=== PATIENT | male | born 1955 | race Caucasian/White ===

== ENCOUNTER 2021-06-16 17:46 | Emergency (ER) | payer OTHER, SELFPAY ==
[2021-06-16 17:55] VITALS: BP 170/101; PULSE 61; RESP 15; TEMP 36.6; O2SAT 99
--- NOTE | 2021-06-16 18:00 | ED.WOUNDLAC ---
HPI - Wound/Laceration General Chief Complaint: Wound/Laceration Stated Complaint: right thumb lac Source: patient and RN notes reviewed Limitations: no limitations History of Present Illness HPI narrative: The left-handed patient, previously mostly healthy with Td status unknown, ,presents with right hand puncture wound. Prior to arrival patient was using a butter knife to separate frozen food, resulting in a puncture to the webspace of his right hand. He complains of mild pain and bleeding; no numbness/weakness, decreased sensation, other injury. All signs remarkable for elevated blood pressure; patient states he did not take his lisinopril last couple days over the weekend. Related Data Home Medications Medication Instructions Recorded Confirmed lisinopril 5 mg PO DAILY 06/16/21 06/16/21 Allergies Allergy/AdvReac Type Severity Reaction Status Date / Time No Known Allergies Allergy Verified 06/16/21 17:58 Review of Systems Review of Systems: General/Constitutional: No weight loss,fever Eyes: N0: Redness,discharge Ears/Nose/Throat: No: Epistaxis,ear discharge Respiratory: Denies: Hemoptysis Gastrointestinal: No Vomiting, Bleeding-rectal Skin: No Lumps, eruption Neurologic: No Focal Weakness,Sz Hematologic: Denies: Petechiae/Purpura Psychiatric: No: Suicida ideationl All Other Systems: Reviewed and Negative PMFSH Comments At time of signature, agree with nursing past medical, surgical, social and family history. There is no relevant family history pertinent to the presenting complaint Exam Narrative: General Appearance: Well appearing, , Conjunctiva clear Mouth/Throat: Normal appearing, Normal lips, Supple Respiratory: Airway patent, No respiratory distress Skin: Warm, Dry, Normal color, 1 cm wound of webspace MS-hand: Nl strength (mostly intact, almost unlimited flexion/extension), Tenderness (web space, with mild decreased ROM), no swelling, Other (no anterior drawer, no collateral laxity) Neurological: A&O x3, Normal affect Course Vital Signs Vital signs: Vital Signs Temperature 97.9 F 06/16/21 17:55 Pulse Rate 61 06/16/21 17:55 Respiratory Rate 15 06/16/21 17:55 Blood Pressure 170/101 H 06/16/21 17:55 Pulse Oximetry 99 06/16/21 17:55 Temperature 97.9 F 06/16/21 17:55 Pulse Rate 61 06/16/21 17:55 Respiratory Rate 15 06/16/21 17:55 Blood Pressure 152/94 H 06/16/21 18:30 Pulse Oximetry 99 06/16/21 17:55 Procedures Laceration Laceration 1: Date: 06/16/21 Site: hand Side (If applicable): right Depth: simple, single layer Local Anesthetic: other anesthetic (let) Amount of anesthesia used (mL): 1 Pre-repair: irrigated extensively ====== Skin Level ====== Skin layer closed with: nylon Size (cm): 5-0 Number of sutures: 2 Technique: simple, interrupted ====== Subcutaneous Layer ====== ====== Muscle Layer ====== ====== Tendon Layer ====== Discharge Plan Discharge Clinical Impression: Laceration of hand, right Qualifiers: Encounter type: initial encounter Foreign body presence: without foreign body Qualified Code(s): S61.411A - Laceration without foreign body of right hand, initial encounter Patient Disposition: Home, Self-Care Condition: Improved Instructions: Care For Your Stitches (ED) Additional Instructions: Remove 2 stitches in about a week Prescriptions: New mupirocin 2 % ointment 1 applic TOPICAL TID Qty: 30 RF: 0 cephalexin 500 mg capsule 1,000 mg PO Q12H 3 Days Qty: 12 RF: 0 No Action lisinopril 5 mg tablet 5 mg PO DAILY RF: 0 Follow-up/Referrals: Luis Wynne MD [Primary Care Provider] -
[2021-06-16] MEDS: TETANUS,DIPHTHERIA,AC PERTUSSIS ADULT (0.5 ML) BOOSTRIX IM (18:10)
[2021-06-16 18:30] VITALS: BP 152/94
== END 2021-06-16 18:30 | disposition home or self-care (01) ==
PROVIDERS: Emergency Provider Emergency Medicine; PCP Hospitalist
DX: S61.011A Laceration without foreign body of right thumb without damage to nail, initial encounter (principal); W26.0XXA Contact with knife, initial encounter; Z23 Encounter for immunization; I10 Essential (primary) hypertension
CPT/HCPCS: 12001; 90471; 90715; 99213; G0463

== ENCOUNTER 2022-12-05 17:56 | Emergency (ER) | payer OTHER, SELFPAY ==
[2022-12-05 17:58] VITALS: BP 184/99; PULSE 63; RESP 18; TEMP 36.6; O2SAT 100
--- NOTE | 2022-12-05 19:52 | ED.GENADULT ---
HPI - General Adult General Chief complaint: Extremity Problem,Nontraumatic Stated complaint: R CALF PAIN AND SWELLING Time Seen by Provider: 12/05/22 19:28 History of Present Illness HPI narrative: 67-year-old male history of hypertension presented with right lower extremity pain. Per patient he was in usual state of health until yesterday, when he noted a small bump to the posterior of his calf which was painful, did not know what it was so presented to the ED for further evaluation. He denied fevers, chills, previous DVT, history of cancer, chest pain, shortness of breath, prolonged immobilization, abdominal pain, trauma to the area, other complaints. Past medical history: Hypertension Past surgical history: Denied Medications: Lisinopril Allergies: No known drug allergies Social: No smoking, no drugs Related Data Home Medications Medication Instructions Recorded Confirmed lisinopril 5 mg tablet 5 mg PO DAILY 06/16/21 06/16/21 Allergies Allergy/AdvReac Type Severity Reaction Status Date / Time No Known Allergies Allergy Verified 12/05/22 19:27 Review of Systems Review of Systems: See HPI Exam Narrative: APPEARANCE: Alert, calm and cooperative, no acute distress, phonating, sitting comfortably during visit HEAD: atraumatic EYES: Pupils equal round an reactive to light, extra ocular movements intact, no conjunctival injection NOSE: Normal no drainage NECK: Supple, without meningismus RESPIRATORY: Lungs clear to auscultation bilaterally, no wheezes/rales/rhonchi, breathing comfortably CARDIOVASCULAR: Regular rate and rhythm, no visible jugular venous distension ABDOMINAL: Soft, nontender, nondistended, no guarding, no rebound/peritoneal signs, no costovertebral tenderness to palpation BACK: no midline tenderness to palpation, no step offs EXTREMITIES: Right calf mild tenderness, DP+PT pulses palpable, soft compartments, no erythema, no crepitus, no fluctuance, no pain with active range of motion, remaining extremities within normal limits, palpable peripheral pulses, warm, well perfused, no tenderness to bilateral calves. NEURO: Alert, moving all extremities symmetrically SKIN:: Warm, dry. Normal color PSYCHIATRIC: Normal affect/mood Course Vital Signs Vital signs: Vital Signs Temperature 98 F 12/05/22 17:58 Pulse Rate 63 12/05/22 17:58 Respiratory Rate 18 12/05/22 17:58 Blood Pressure 184/99 H 12/05/22 17:58 Pulse Oximetry 100 12/05/22 17:58 Oxygen Delivery Room Air 12/05/22 17:58 Temperature 98 F 12/05/22 17:58 Pulse Rate 63 12/05/22 17:58 Respiratory Rate 18 12/05/22 17:58 Blood Pressure 184/99 H 12/05/22 17:58 Pulse Oximetry 100 12/05/22 17:58 Oxygen Delivery Room Air 12/05/22 17:58 Medical Decision Making MDM Narrative Medical decision making narrative: Medical Decision Making 67-year-old male history of hypertension presented with 1 day of right calf pain. Denies trauma, previous DVT, prolonged immobilization, history of cancer. Wells DVT score - 1 (alternative diagnosis and localized calf pain). Differential diagnosis includes but not limited to: Cellulitis versus DVT. SubQ Lovenox given. Patient educated on potential DVT, and need for return tomorrow for DVT ultrasound. He expressed understanding. Cephalexin sent for empiric treatment of cellulitis. Physical exam benign, vitals stable. The patient tolerated oral intake, is alert and oriented, speaking with clear speech, ambulated with steady gait, and has remained hemodynamically stable throughout the ED visit. He has close follow up with DVT US tomorrow and primary care provider. Areas of diagnostic uncertainty discussed and strict return precautions shared with patient; encouraged to return to the emergency department if symptoms returned or worsened. The patient is safe to be discharged with follow up, provided he abide by the verbalized and written instruction, to which the patient has express unders
[2022-12-05] MEDS: ENOXAPARIN 40 MG/0.4 ML SYRINGE SUB-Q (20:27)
[2022-12-05 20:45] VITALS: BP 180/101; PULSE 58; RESP 16; O2SAT 96
== END 2022-12-05 20:50 | disposition home or self-care (01) ==
PROVIDERS: Emergency Provider Emergency Medicine; PCP Hospitalist
DX: R60.0 Localized edema (principal); I10 Essential (primary) hypertension
CPT/HCPCS: 96372; 99283; J1650

== ENCOUNTER 2022-12-06 09:33 | Outpatient (CLI) | payer OTHER, SELFPAY ==
--- NOTE | ~2022-12-06 | US_ITS ---
EXAMINATION: US venous doppler LE RT DATE: 12/06/2022 10:14 INDICATION: Lower limb swelling TECHNIQUE: Elkins scale images without and with compression and Doppler images of the right lower extre mity veins were obtained. COMPARISON: None FINDINGS: The right common femoral vein, profunda femoral vein, femoral vein, popliteal vein, peronea l trunk, posterior tibial veins, and greater saphenous vein are patent. There is superficial venous t hrombosis of the lesser saphenous vein. IMPRESSION: 1. No evidence of deep venous thrombosis. 2. Superficial venous thrombosis of the lesser saphenous vein. Reviewed, dictated and finalized at location A.
== END 2022-12-06 09:34 | disposition home or self-care (01) ==
PROVIDERS: PCP Hospitalist; Visit Provider Emergency Medicine
DX: M79.89 Other specified soft tissue disorders (principal)
CPT/HCPCS: 93971

== ENCOUNTER 2024-07-17 12:33 | Outpatient (CLI) | payer OTHER, SELFPAY ==
--- NOTE | ~2024-07-17 | XR_ITS ---
Right Shoulder Technique: AP and scapular Y views were obtained. Clinical History: Pain Findings: No fracture or dislocation is seen. Osseous alignment is anatomic. The glenohumeral and acr omioclavicular joint spaces are preserved. Soft tissues are unremarkable. Impression: Unremarkable right shoulder radiographs. Reviewed, dictated and finalized at [facility]. B DIRECTOR Impression: Unremarkable right shoulder radiographs.
== END 2024-07-17 12:34 | disposition home or self-care (01) ==
DX: M25.511 Pain in right shoulder (principal)
CPT/HCPCS: 73030

== ENCOUNTER 2025-07-24 02:59 | Day surgery (SDC) | payer OTHER, SELFPAY ==
[2025-07-02 13:42] VITALS: BMI 28.5
--- OUTSIDE RECORDS SUMMARY | 2025-07-24 03:03 | XMS_ITS | Patient Health Record ---
Author Organization [facility] Address [address] [place], [place] [id number] Care Team Providers Care Lithographic Photographer Name Role Phone JENNIFER Marquez Unavailable Reason For Referral No Information Medications Medication SIG (Take, Route, Frequency, Duration) Notes Start Date End Date Status naftifine hydrochloride 20 MG/ML Topical Cream [Naftin] CUTANEOUS naftifine hydrochloride 20 MG/ML Topical Cream [Naftin]Original Medicationnaftifine hydrochloride 20 MG/ML Topical Cream [Naftin] *Reorder from [employer] for eRx and Interaction Alerts* 04/06/2012 Active Social History Social History Additional Details Category Social Info Options Details Migrated Social History Migrated Social History Smoking Status : Never smoked , History of tobacco use : Plan Of Treatment No Information Insurance Providers Payer Name Payer Address Payer Phone Subscriber Number Group Number Insured Name Patient Relationship to Insured Coverage Start Date Coverage End Date [facility] [address] [address] [place] [address] [id number] LENA LYONS JR Self - patient is the insured
[2025-07-24 08:46] VITALS: BP 143/93; PULSE 62; RESP 20; TEMP 36.6; O2SAT 100; BMI 28.1
--- NOTE | 2025-07-24 08:54 | WPDANESEPPF ---
Anes - Initial Pre Proc Eval Procedure: Operation Date: 07/24/25 10:00 Proposed Procedures p Screening Colonoscopy - Barrie Acosta DO Date/Time: 07/24/25 08:54 Surgeon: Barrie Acosta DO Pre Op Diagnosis: Neoplasm screening Patient Data Age: 70 Gender: M Height: 1.73 m Weight: 85 kg Allergies Allergy/AdvReac Type Severity Reaction Status Date / Time No Known Allergies Allergy Verified 07/24/25 08:54 Home Medications ?Medication ?Instructions ?Recorded ?Confirmed ?Type lisinopril 5 mg tablet 5 mg PO DAILY 06/16/21 07/24/25 History Patient hx anesthesia problems: none Family hx anesthesia problems: none Results Review: All pre-operative results and documents have been reviewed as part of the pre-operative evaluation. [facility] Past Medical History Medical History (Updated 07/24/25 @ 08:55 by Pepe Whitney MD) HTN (hypertension) Overweight Social History Social History Smoking status: Never smoker Alcohol intake: never Substance use: never Substance use type: does not use Living arrangements: with family Spiritual care concerns: No Anes - Eval Final PreProcedure Day of Procedure 07/24/25 08:54 Patient weight: overweight Heart: regular rate and rhythm Lungs: clear to auscultation Airway: Mallampati scale class II Neurological: alert and oriented Last oral intake: >/= 8 hours ASA classification: II Emergent: no Anesthesia type and monitoring: general GIVS and standard monitoring Results Review: All pre-operative results and documents have been reviewed as part of the pre-operative evaluation. Informed Consent: The patient's anesthetic plan and its attendant risks and benefits were discussed with the patient/family/POA. Questions were solicited and answers provided to the satisfaction of the patient/family/POA.
--- NOTE | 2025-07-24 08:57 | SUR.PREOP ---
notified that pt stated to have a chips, m&m's and a soda at 1100 on 07/23/2025. Patient stated stools are clear and bowel prep was completed. okay to proceed with procedure.
[2025-07-24] MEDS: LACTATED RINGERS 1,000 ML 150 ML IV CONT (09:04)
--- NOTE | 2025-07-24 09:28 | P.HP_ITS ---
H&P: HPI History of Present Illness Date/Time: 07/24/25 09:28 Chief Complaint: screening for colorectal cancer Narrative: this is a 70-year-old man who presents for colonoscopy. His last colonoscopy was 10 years ago and polyps were removed at that time. He denies any hematochezia or melena. He denies family history of colon cancer. Review of Systems Review of Systems: All systems reviewed & are unremarkable except as noted in HPI and below Constitutional: Constitutional: Denies chills, Denies fever(s), Denies headache(s) and Denies weight loss Eyes: Eyes: Denies change in vision ENT: Denies dizziness, Denies headache(s), Denies neck mass and Denies throat swelling Cardiovascular: Cardiovascular: Denies chest pain, Denies lightheadedness and Denies dyspnea Respiratory: Respiratory: Denies cough, Denies dyspnea and Denies wheezing Gastrointestinal: Gastrointestinal: Denies abdominal pain, Denies change in bowel habits, Denies nausea and Denies vomiting Genitourinary: Genitourinary: Denies hematuria and Denies dysuria Musculoskeletal: Musculoskeletal: Reports as per HPI Integumentary/Breasts: Skin/Breast: Reports as per HPI Neurologic: Denies dizziness and Denies headache(s) Allergic/Immunologic: Allergic/Immunologic: Denies throat swelling and Denies wheezing [facility] Past Medical History Medical History (Updated 07/24/25 @ 09:29 by Barrie Acosta DO) HTN (hypertension) Overweight Social History Social History Smoking status: Never smoker Alcohol intake: never Substance use: never Substance use type: does not use Living arrangements: with family Spiritual care concerns: No Meds Home Medications and Allergies Home Medications ?Medication ?Instructions ?Recorded ?Confirmed ?Type lisinopril 5 mg tablet 5 mg PO DAILY 06/16/2107/24 History Allergies Allergy/AdvReac Type Severity Reaction Status Date / Time No Known Allergies Allergy Verified 07/24/25 08:54 Vital Signs Vital Signs - 24 hr 07/24/25 08:46 Temperature 97.8 F Pulse Rate 62 Respiratory Rate 20 Blood Pressure 143/93 H Pulse Oximetry 100 Oxygen Delivery Room Air Exam Const: General: no acute distress and alert Orientation/consciousness: patient oriented x3 HENMT: Head: normocephalic and atraumatic Ears: hearing grossly normal bilaterally Face/Nose/Sinus: Normal nares present Mouth: Yes Normal oral a nd palatal mucosa present Eyes: Periorbital: periorbital findings normal Sclera: sclerae normal EOM: EOMs intact bilaterally Neck: Neck: normal visual inspection, no lymphadenopathy and trachea midline Chest: Chest palpation & inspection: normal inspection of the chest Resp: Effort & Inspection: normal respiratory effort Auscultation: clear to auscultation bilaterally Cardio: Jugular venous distension: no JVD Rate: regular rate Rhythm: regular rhythm Heart sounds: S1 normal heart sound present and S2 normal heart sound present Peripheral pulses: Peripheral pulses 2+ throughout GI: Inspection: normal to inspection GI Palp: Yes Soft to palpation, No Tenderness to palpation present (GI), No Guarding due to palpation present (GI) and No Rebound tenderness present Percussion: Yes normal to percussion Auscultation: normal bowel sounds : General: Yes no CVA tenderness Back/Spine/Pelvis: Back: no CVA tenderness Neuro: General: patient oriented x3, no focal motor deficits and CN's II-XI intact bilaterally Cognition (Neuro): normal cognition Speech: normal speech Motor exam (neuro): 5/5 motor strength present throughout Extrem: General: capillary refill normal and no clubbing, cyanosis or edema Assessment and Plan Assessment and plan (1) Screening for colorectal cancer: Code(s): Z12.11 - Encounter for screening for malignant neoplasm of colon; Z12.12 - Encounter for screening for malignant neoplasm of rectum Status: Acute Assessment and Plan: I have recommended colonoscopy. I have discussed the procedure, risks, benefits, and alternatives. Questions were answered. Patient is agreeable to proceed.
[2025-07-24 09:55] VITALS: BP 106/68; PULSE 52; RESP 14; O2SAT 95
[2025-07-24 10:05] VITALS: BP 107/66; PULSE 48; RESP 13; O2SAT 95
[2025-07-24 10:15] VITALS: BP 116/74; PULSE 47; RESP 20; O2SAT 97
== END 2025-07-24 10:21 | disposition home or self-care (01) ==
PROVIDERS: Visit Provider Surgery
PROC: 0DJD8ZZ Inspection of Lower Intestinal Tract, Via Natural or Artificial Opening Endoscopic (ICD-10-PCS; CPT 45378; principal; 2025-07-24 10:00)
DX: Z12.11 Encounter for screening for malignant neoplasm of colon (principal); I10 Essential (primary) hypertension
CPT/HCPCS: 45378; J2704; J7120